=== PATIENT | male | born 1960 | race Caucasian/White ===

== ENCOUNTER 2020-09-22 10:03 | Emergency (ER) | payer SELFPAY ==
[~2020-09-22] VITALS: Ht 180.3 cm; Wt 96.6 kg
[2020-09-22 10:10] VITALS: Ht 180.3 cm; Wt 96.6 kg
[2020-09-22] MEDS ORDERED: FLOMAX0.4 MG PO (10:30)
[2020-09-22] MEDS ORDERED: [UNRECOGNIZED DRUG - OTHER] (10:33)
[2020-09-22 11:37] LABS: BASOPHIL % 1.8 % (0.2-1.5); PLATELET COUNT 266 x10^3mcL (152-348); RED CELL DISTRIBUTION WIDTH 13.3 % (12.1-16.2)
[2020-09-22 12:34] LABS: CALCIUM 9.2 mg/dL (8.5-10.1); CARBON DIOXIDE 27.4 mmol/L (21-32); CREATININE SERUM 1.5 mg/dL (0.7-1.3); POTASSIUM SERUM 4.3 mmol/L (3.5-5.1)
[2020-09-22 12:38] LABS: ALBUMIN 3.8 g/dL (3.4-5.0); BILIRUBIN TOTAL 0.4 mg/dL (0.20-1.00); TOTAL PROTEIN, SERUM 7.3 g/dL (6.4-8.2)
[2020-09-22 13:27] VITALS: BP 132/80
== END 2020-09-22 14:00 | disposition home or self-care (01) ==
LOC: ED 10:03
PROVIDERS: Emergency Medicine
DX: R33.9 Retention of urine, unspecified (principal)
CPT/HCPCS: J2001; J2405; J3010